=== PATIENT | male | born 1945 ===

== ENCOUNTER 2018-04-28 09:02 | Emergency (ER) | payer OTHER ==
[~2018-04-28] VITALS: Ht 175.3 cm; Wt 79.4 kg
[2018-04-28] MEDS ORDERED: SYNTHROID75 MCG (09:30)
[2018-04-28] MEDS ORDERED: GLIPIZIDE5 MG (09:30)
[2018-04-28] MEDS ORDERED: BETAMETHASONE D15 G3 (09:31)
[2018-04-28] MEDS ORDERED: PROPRANOLOL HCL10 MG (09:32)
[2018-04-28] MEDS ORDERED: FREESTYLE TEST1 EACH (09:32)
[2018-04-28] MEDS ORDERED: ZOCOR40 MG (09:32)
[2018-04-28] MEDS ORDERED: ALLERGY EYE DRO10 ML (09:33)
[2018-04-28] MEDS ORDERED: ARTIFICIAL TEAR15 M8 (09:33)
[2018-04-28] MEDS ORDERED: FORTAMET1000 MG (09:34)
[2018-04-28] MEDS ORDERED: LISINOPRIL5 MG (09:34)
[2018-04-28] MEDS ORDERED: VALTREX1000 MG PO (11:41)
[2018-04-28] MEDS ORDERED: ZOVIRAX5 GM TOP (11:41)
== END 2018-04-28 13:42 | disposition home or self-care (01) ==
LOC: ER 09:02
DX: B02.8 Zoster with other complications (principal)

== ENCOUNTER 2018-06-09 13:45 | Inpatient (IN) | payer OTHER ==
[~2018-06-09] VITALS: Ht 175.3 cm; Wt 78.5 kg
[~2018-06-09 13:45] MED LIST: ALLERGY EYE DRO10 ML; ARTIFICIAL TEAR15 M8; BETAMETHASONE D15 G3; FORTAMET1000 MG; FREESTYLE TEST1 EACH; GLIPIZIDE5 MG; LISINOPRIL5 MG; PROPRANOLOL HCL10 MG; SYNTHROID75 MCG; VALTREX1000 MG PO; ZOCOR40 MG; ZOVIRAX5 GM TOP
[2018-06-16] MEDS ORDERED: DOCUSATE SODIU100 MG PO (10:11)
[2018-06-16] MEDS ORDERED: PERCOCET 5-3251 EACH PO (10:13)
[2018-06-16] MEDS ORDERED: CLONAZEPAM1 MG PO (10:13)
== END 2018-06-16 12:34 | disposition home or self-care (01) | DRG 454 ==
LOC: PED 06-15 05:00 → O/R 06-15 05:00 → SURG 06-15 07:00 → PED 06-15 13:43 → SURG 06-15 13:45 → PED 06-16 12:34
PROVIDERS: Orthopaedic Surgery Orthopaedic Surgery of the Spine
PROC: 0RG1071 Fusion of Cervical Vertebral Joint with Autologous Tissue Substitute, Posterior Approach, Posterior Column, Open Approach (ICD-10-PCS; 2018-06-15)
PROC: 0RT30ZZ Resection of Cervical Vertebral Disc, Open Approach (ICD-10-PCS; 2018-06-15)
PROC: 07DS3ZZ Extraction of Vertebral Bone Marrow, Percutaneous Approach (ICD-10-PCS; 2018-06-15)
PROC: 0RG10A0 Fusion of Cervical Vertebral Joint with Interbody Fusion Device, Anterior Approach, Anterior Column, Open Approach (ICD-10-PCS; principal; 2018-06-15 07:00)
DX: M50.022 Cervical disc disorder at C5-C6 level with myelopathy (principal); M47.12 Other spondylosis with myelopathy, cervical region; I10 Essential (primary) hypertension; E03.8 Other specified hypothyroidism; E11.9 Type 2 diabetes mellitus without complications